=== PATIENT | female | born 1995 | race Asian ===

== ENCOUNTER 2021-08-20 19:01 | Outpatient (REF) | payer OTHER, SELFPAY ==
[2021-08-20 18:48] LABS: HCT 35.8 % (36.0-46.0); MCH 31.7 pg (27.0-33.0); MCHC 33.5 % (32.0-36.0); MCV 95 fL (80-95); MPV 10.1 fL (8.0-11.0); Platelet Count 286 10^3/uL (130-400); RBC 3.78 10^6/uL (3.93-5.22); RDW 12.1 % (11.7-14.6); RDW-SD 42.2 fL; WBC 6.03 10^3/uL (4.4-10.8)
[2021-08-20 19:25] LABS: C-Reactive Protein 0.11 mg/dL (0.0-0.3); TSH (W/Ref FT4) 1.96 uIU/mL (0.36-3.74)
[2021-08-23 09:47] LABS: Cyclic Citrullinated Peptide <2.5 U/mL (<5.0)
[2021-08-23 10:36] LABS: Hepatitis C Ab w Rflx HCV PCR Negative (Negative)
[2021-08-23 11:19] LABS: HIV-1/2 Ag & Ab Screen Negative (Negative)
[2021-08-23 12:44] LABS: IgA 195 mg/dL (85-499); Interpretation (See Note); Tissue Transglutaminase IgA <1.2 U/mL (<4.0)
[2021-08-23 16:04] LABS: ANA Interpretation Negative (Negative)
== END 2021-08-20 19:02 | disposition home or self-care (01) ==
LOC: NCHCN 19:01
PROVIDERS: PCP Nurse Practitioner Family; Visit Provider Family Medicine
DX: R53.83 Other fatigue (principal); M25.50 Pain in unspecified joint; Z11.4 Encounter for screening for human immunodeficiency virus [HIV]; Z11.59 Encounter for screening for other viral diseases
CPT/HCPCS: 82784; 83516; 85027; 86200; 86803; 87389; 84443; 86038; 86140